=== PATIENT | female | born 1990 | race Caucasian/White ===

== ENCOUNTER 2023-04-26 04:59 | Day surgery (SDC) | payer OTHER ==
[2023-04-22 10:27] VITALS: BMI 39.4
[2023-04-26] MEDS ORDERED: ROPIVACAINE HCL 0.5% 30ML VIAL ONE (12:56)
[2023-04-26] MEDS ORDERED: DEXAMETHASONE SOD PHOSPHATE 10 MG/1 ML VIAL ONE (12:56)
[2023-04-26] MEDS ORDERED: MIDAZOLAM HCL 2 MG/2 ML SINGLE DOSE VIAL ONE (12:57)
[2023-04-26] MEDS ORDERED: FENTANYL CITRATE/PF 50 MCG/ML VIAL ONE ×2 (13:17→13:32)
[2023-04-26] MEDS ORDERED: PROPOFOL 40 ML ONE (13:17)
[2023-04-26] MEDS ORDERED: PROPOFOL 20 ML ONE (13:25)
[2023-04-26] MEDS ORDERED: KETOROLAC TROMETHAMINE 30 MG/1 ML VIAL ONE (13:32)
[2023-04-26] MEDS ORDERED: ONDANSETRON 4 MG/2 ML VIAL ONE (13:32)
[2023-04-26] MEDS ORDERED: ceFAZolin SODIUM 1 GM VIAL ONE (13:32)
[2023-04-26] MEDS ORDERED: ceFAZolin SODIUM 1 GM VIAL IVPB ONE (13:33)
[2023-04-26 15:27] VITALS: RESP 18
[2023-04-26 16:52] VITALS: BP 111/71; PULSE 61; TEMP 97.6
== END 2023-04-26 16:30 | disposition home or self-care (01) ==
LOC: JASU-SURG 04:59
PROVIDERS: ATTEND Orthopaedic Surgery
PROC: 0PB94ZZ Excision of Right Clavicle, Percutaneous Endoscopic Approach (ICD-10-PCS; 2023-04-26)
PROC: 0RNJ4ZZ Release Right Shoulder Joint, Percutaneous Endoscopic Approach (ICD-10-PCS; principal; 2023-04-26 13:30)
DX: M75.41 Impingement syndrome of right shoulder (principal); M19.011 Primary osteoarthritis, right shoulder
CPT/HCPCS: 81025; 94760; J1100